=== PATIENT | female | born 1960 | race Two or more races ===

== ENCOUNTER 2021-01-17 10:58 | Emergency (ER) | payer MEDICARE, SELFPAY ==
--- NOTE | ~2021-01-17 | XR_ITS ---
EXAMINATION: XR KNEE, RIGHT CLINICAL INFORMATION: Right knee pain COMPARISON: None TECHNIQUE: Four views of the right knee. FINDINGS: The tricompartment joint space is maintained. There is mild periarticular spurring in the medial and patellofemoral compartments. No loose bodies, bony erosive changes or joint effusion seen. XR/XR knee RT 4V IMPRESSION: Degenerative arthritic changes medial and patellofemoral compartment with periarticular spurring. No visible acute fracture or dislocation or subluxation seen.
[2021-01-17 11:07] VITALS: BP 157/69; PULSE 97; RESP 20; TEMP 36; O2SAT 96; BMI 41.1
[2021-01-17] MEDS: Ketorolac Tromethamine 30 MG/ML VIAL IM (12:20)
--- NOTE | 2021-01-17 13:02 | ED_ITS ---
HPI - Extremity Problem General Chief complaint: Extremity Problem Stated complaint: rt knee pain Time Seen by Provider: 01/17/21 12:05 Source: patient Mode of arrival: ambulatory Limitations: no limitations History of Present Illness HPI Narrative: Patient presents to ED for right knee pain. Patient denies pain on ambulation. Patient denies any recent trauma, knee swelling, leg swelling, calf pain, chest pain, shortness of breath, redness of knee/legs, or any recent trauma. Patient states knee pain is in the medial aspect of knee Related Data Previous Rx's Medication Instructions Recorded naproxen 500 mg PO BID PRN #20 tab 01/17/21 prednisone 40 mg PO DAILY #10 tab 01/17/21 Allergies Allergy/AdvReac Type Severity Reaction Status Date / Time No Known Allergies Allergy Verified 01/17/21 12:05 Review of Systems Review of Systems: Yes all other systems are reviewed and are negative Constitutional: Constitutional: Reports as per HPI and Reports no additional constitutional complaints Eyes: Eyes: Reports as per HPI and Reports no additional eye complaints ENT: Reports system reviewed and no additional complaints, except as documented and Reports as per HPI Cardiovascular: Cardiovascular: Reports as per HPI and Reports no additional cardiovascular complaints Respiratory: Respiratory: Reports as per HPI and Reports no additional respiratory complaints Gastrointestinal: Gastrointestinal: Reports as per HPI and Reports no additional gastrointestinal complaints Genitourinary: Genitourinary: Reports no additional female genitourinary complaints and Reports as per HPI Musculoskeletal: Musculoskeletal: Reports no additional musculoskeletal complaints, Reports as per HPI and Reports arthralgias (Right knee pain) Neurologic: Reports system reviewed and no additional complaints, except as documented and Reports as per HPI Psychiatric: Psychiatric: Reports no additional psychiatric complaints and Reports as per HPI [facility] Past Medical History Medical History (Updated 01/17/21 @ 13:09 by ENRRIQUE Robertson) Cholecystectomy planned COPD (chronic obstructive pulmonary disease) Depression Diabetes HLD (hyperlipidemia) HTN (hypertension) Sleep apnea Surgical History (Updated 01/17/21 @ 12:11 by Libra Abernathy) H/O: hysterectomy Social History Social History Advance Directives: No Advance Directives Information Provided: No Patient : No Physical Exam Vital Signs: Vital Signs: Last Vital Signs Temp 96.8 F 01/17/21 11:07 Pulse 97 01/17/21 11:07 Resp 20 01/17/21 11:07 BP 157/69 H 01/17/21 11:07 Pulse Ox 96 01/17/21 11:07 Body Mass Index 41.1 Const: General: cooperative, healthy appearing, comfortable, no acute distress, well developed, alert, awake and Physically active Orientation/consciousness: patient oriented x3 HENMT: Head: Yes normal to inspection, Yes No palpable skull fracture present, Yes normocephalic, Yes atraumatic and No abrasion Eyes: General: appearance normal, both eyes and all related structures Neck: Neck: Yes normal visual inspection, Yes full ROM, Yes no lymphadenopathy, Yes no meningeal signs, Yes trachea midline, Yes supple and No tender Chest: Chest palpation & inspection: normal inspection of the chest and normal palpation of entire chest wall Resp: Effort & Inspection: normal respiratory effort and able to speak in complete sentences Auscultation: clear to auscultation bilaterally Cardio: Jugular venous distension: no JVD Heart sounds: S1 normal heart sound present and S2 normal heart sound present GI: Inspection: Yes normal to inspection and No abdominal wall ecchymosis Palpation (GI): Soft to palpation, not firm, nontender, no guarding and not rigid : General: No CVA tenderness and Yes no CVA tenderness Back/Spine/Pelvis: Back: no CVA tenderness, No CVA tenderness and No back tenderness Skin: General skin exam: no rashes or lesions noted and elasticity normal Neuro: General: patient oriented x3, gait normal, no meningeal signs and CN's II-XI intact bilaterally Cranial nerves: Yes CN's II-XII intact bilaterally Extrem: General: Yes normal to inspection and Yes full ROM Knee images: 1. Positive for medial knee tenderness on palpation. Negative for knee swelling, redness, or warmth. Negative for right thigh/leg redness/swelling. Negative for any calf pain. Vascular/motor/neuro exam is intact. Able to flex and extend knee, but with pain. Psych: Appearance: grossly normal, well kempt and not disheveled Course Course Course Narrative: Will send for knee x-ray. Reevaluation(s) Reevaluation #1: Knee x-ray shows arthritis. No joint effusion. Will be discharged with pain meds Time: 13:07 MDM - Extremity (Nontraumatic) MDM Narrative Medical decision making narrative: Knee arthritis Discharge Plan Discharge Clinical Impression: Arthritis of knee Patient Disposition: Home, Self-Care Instructions: Osteoarthritis (ED), Arthritis (ED) Additional Instructions: La radiograf?a de bradshaw rodilla result? negativa por cualquier fractura o l?quido. La radiograf?a de rodilla muestra bari artritis degenerativa grave. Se descargar? con analg?sicos y esteroides. Regrese al servicio de urgencias de inmediato si tiene hinchaz?n, enrojecimiento, incapacidad para flexionarse o estirarse, dolor en la pantorrilla, hinchaz?n de la pierna, enrojecimiento de la pierna, fiebre, escalofr?os, dolor en el pecho, dificultad para respirar, calor, frialdad de las extremidades inferiores, decoloraci?n edita azulada de los dedos de los pies o cualquier otro s?ntoma relacionado. Maryam un seguimiento con bradshaw PCP Prescriptions: New naproxen 500 mg tablet 500 mg PO BID PRN (Reason: pain) Qty: 20 RF: 0 prednisone 20 mg tablet 40 mg PO DAILY Qty: 10 RF: 0 Interventions: ED Discharge Assessment Last Done: 01/17/21 13:25 Discharge Date/Time: 01/17/21 13:27 Print Language: Estonian
== END 2021-01-17 13:27 | disposition home or self-care (01) ==
PROVIDERS: Emergency Provider Emergency Medicine
DX: M17.11 Unilateral primary osteoarthritis, right knee (principal); I10 Essential (primary) hypertension; E11.9 Type 2 diabetes mellitus without complications
CPT/HCPCS: 73564; 96372; 99283; 99284; J1885